=== PATIENT | male | born 1955 | race African-American/Black ===

== ENCOUNTER 2018-10-30 22:45 | Emergency (ER) | payer BC ==
[~2018-10-30] VITALS: Ht 175.3 cm; Wt 101.6 kg
[2018-10-30 23:03] VITALS: BP 156/87
== END 2018-10-30 23:26 | disposition home or self-care (01) ==
LOC: ER 22:50
DX: R05 Cough (principal); F17.200 Nicotine dependence, unspecified, uncomplicated; I10 Essential (primary) hypertension; E11.9 Type 2 diabetes mellitus without complications; E78.00 Pure hypercholesterolemia, unspecified
CPT/HCPCS: 99283; 99406; A4606; Z7610

== ENCOUNTER 2019-01-09 23:09 | Emergency (ER) | payer BC ==
--- NOTE | 2019-01-10 01:12 | NUR ---
CALLED PT THREE TIMES. NO RESPONSE.
--- NOTE | 2019-01-10 01:43 | NUR ---
CALLED PT THREE TIMES. NO RESPONSE.
--- NOTE | 2019-01-10 02:18 | NUR ---
CALLED PT THREE TIMES. NO RESPONSE.
== END 2019-01-10 02:19 | disposition left against medical advice (07) ==
LOC: ER 23:12
DX: Z53.21 Procedure and treatment not carried out due to patient leaving prior to being seen by health care provider (principal)